=== PATIENT | male | born 2000 | race Caucasian/White ===

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

== ENCOUNTER 2021-05-04 15:09 | Inpatient (IN) ==
[2021-05-04 15:58] LABS: Basophils # (auto) 0.01 K/uL (0-0.2); Basophils % (auto) 0.1 %; Eosinophils # (auto) 0.14 K/uL (0-0.5); Eosinophils % (auto) 1.9 %; Hemoglobin 13.6 g/dL (14.0-18.0); Immature Granulocytes # (auto) 0.01 K/uL (0.00-0.02); Immature Granulocytes % (auto) 0.1 %; Lymphocytes # (auto) 2.09 K/uL (1.2-3.4); Lymphocytes % (auto) 28.9 %; Mean Corpuscular Hemoglobin 28.5 pg (25-34); Mean Corpuscular Hgb Conc 33.2 g/dL (32-36); Mean Corpuscular Volume 85.8 fL (80-100); Mean Platelet Volume 9.1 fL (7.4-10.4); Neutrophils # (auto) 4.19 K/uL (1.4-6.5); Platelet Count 313 K/uL (130-400); RDW Coefficient of Variation 14.4 % (11.5-14.5); RDW Standard Deviation 45.4 fL (36.4-46.3); Red Blood Count 4.78 M/uL (4.7-6.1); White Blood Count 7.24 K/uL (4.8-10.8)
--- NOTE | 2021-05-04 15:58 | Emergency Department Note ---
Impression & Plan Acute cerebrovascular accident (CVA), Right sided weakness, Anemia ED Provider Note NAME: FER EUCEDA AGE: 20 SEX: M : 2000 ARRIVES VIA: Walk-In INFORMANT: Patient ED PROVIDER(S): Shaq De La Torre DO CHIEF COMPLAINT: Possible stroke HPI: Patient is a 20-year-old male who presents the ER for right-sided weakness which started this past Saturday. He was seen evaluated in outside facility and discharged home. He notes he has been having trouble with fine motor movements and has been dropping his phone and having trouble writing. He is right-hand dominant. He admits to mild headache. No neck pain. No chest pain shortness of breath nausea vomiting or diarrhea. No other exacerbating or remitting factors. He had an MRI done as an outpatient which showed a possible stroke. ROS: See above HPI for pertinent positives & negatives. A total of 10 systems reviewed and were otherwise negative. PAST MEDICAL HISTORY:See Below PAST SURGICAL HISTORY:See Below FAMILY HISTORY:See Below SOCIAL HISTORY:See Below HOME MEDICATIONS:See Below ALLERGIES:See Below VITALS:See Below PHYSICAL EXAMINATION: GENERAL: Sitting up in bed, alert, well appearing, well nourished, no distress, non-toxic EYE EXAM: normal conjunctiva. PERRL and EOM's grossly intact. OROPHARYNX: no exudate, no erythema, lips, buccal mucosa, and tongue normal and mucous membranes are moist NECK: supple, no nuchal rigidity, no adenopathy, non-tender LUNGS: Clear to auscultation. Normal chest wall mechanics HEART: no murmurs, S1 normal and S2 normal ABDOMEN: abdomen soft, non-tender, normo-active bowel sounds, no masses, no rebound or guarding. BACK: Back is symmetrical on inspection and there is no deformity, no midline tenderness, no CVA tenderness. SKIN: no rashes and no bruising UPPER EXTREMITIES: upper extremities are grossly normal. LOWER EXTREMITIES: No pitting edema. NEURO EXAM: Normal sensorium, cranial nerves II-XII intact, normal speech, faintly weaker with grasp of the right upper extremity. 5 out of 5 bilaterally, no gross weakness of legs. No drift. Finger to nose intact. Gross sensation intact. Rapid alternating movements of upper extremities intact. MEDICAL DECISION MAKING: Patient is a 20-year-old male who presents ER for right-sided weakness. Patient had an MRI performed which showed a stroke. Dr. Ludwig called me and I discussed with the MRI techs and our charge nurse and obtained a bed for this patient. IV was established blood work was obtained. Labs show no significant leukocytosis or anemia. BMP with LFTs was unremarkable. Covid was negative. MR showed CVA. Discussed with the hospitalist and patient was admitted for acute stroke. He was out of the window for TPA as symptoms started on Saturday. Triage Nursing notes reviewed. Limited review of prior medical records performed Vital Signs: reviewed and remarkable for no significant abnormalities Differential diagnosis: Differential Diagnosis includes but is not limited to ischemic Stroke, hemorrhag ic stroke, bells palsy, mass, neoplasm, migraine headache, seizure, subarachnoid hemorrhage, TIA, and transient global amnesia. ER treatment provided: See below Diagnostics interpreted by me: ECG: Sinus rhythm rate 69 Normal axis No PVCs QTC 415 Cardiac Monitoring: An order was placed for continuous cardiac monitoring. The monitor shows a rate of 72 with sinus rhythm. Laboratory studies: As stated above and show below. Imaging studies: MRIs were reviewed and showed acute CVA Consultation(s): Discussed with [facility] hospitalist team for further evaluation Procedures: none Critical Care: None Past Med/Surg History Medical History (Updated 05/04/21 @ 21:34 by Shaq De La Torre DO) Migraine Surgical History (Updated 05/04/21 @ 19:18 by Aliza Angulo PA-C) History of hernia repair and repair of undescended testicle @ 13month old Family History (Updated 05/04/21 @ 19:19 by Aliza Angulo PA-C) Father Pancreatic cancer Diabetes Hypertension Denies family history of Clotting disorder Stroke Social History (Updated 05/04/21 @ 19:20 by Aliza Angulo PA-C) Smoking Status: Never smoker Do You Dip or Chew Tobacco: No; Hx Alcohol Use: No Hx Substance Use: No Preferred Language: Khmer Communication Ability: Effective Product Grader Required: No Beliefs That Will Affect Care: None marital status: Single Current Living Situation: Family Current Living Situation Comment: [employer] Student; 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 Other Information That Helps Us Care for You: No Feels Safe at Home: Yes Safety Concerns: Feels Safe At This Time Assistive Devices: None Allergies Allergies Allergy/AdvReac Type Severity Reaction Status Date / Time No Known Allergies Allergy Verified 05/04/21 15:46 Home Meds Home Medications Medication Instructions Recorded Confirmed No Known Home Medications 05/04/21 05/04/21 Results & Data (ED) Vital Signs Vital Signs - 24 hr 05/04/21 15:23 05/04/21 15:44 05/04/21 15:45 Temperature 36.8 C Temperature Source Oral Pulse Rate 60 75 62 Pulse Rate from SpO2 Sensor Pulse Rhythm Regular Pulse Strength Normal Respiratory Rate 18 18 17 Respiratory Effort / Characteristics Non-Labored Respiratory Depth Normal Respiratory Pattern Regular Blood Pressure 122/87 122/87 Blood Pressure Mean 98 98 Blood Pressure Position Lying Pulse Oximetry 98 99 100 Oxygen Delivery Method Room Air Room Air Room Air Sepsis Recent Fever Within 48 Hours No Sepsis New/Unexplained Change in Mental Status N/A Sepsis Action Taken by Nursing No Action Required 05/04/21 16:00 05/04/21 16:15 Temperature Temperature Source Pulse Rate 61 67 Pulse Rate from SpO2 Sensor 66 Pulse Rhythm Pulse Strength Respiratory Rate 15 18 Respiratory Effort / Characteristics Respiratory Depth Respiratory Pattern Blood Pressure 126/86 117/81 Blood Pressure Mean 99 93 Blood Pressure Position Pulse Oximetry 99 98 Oxygen Delivery Method Room Air Room Air Sepsis Recent Fever Within 48 Hours Sepsis New/Unexplained Change in Mental Status Sepsis Action Taken by Nursing Laboratory Data Result diagrams: 05/04/21 15:45 05/04/21 15:45 Lab Results 05/04/21 05/04/21 05/04/21 Range/Units 15:45 15:45 15:45 WBC 7.24 (4.8-10.8) K/uL RBC 4.78 (4.7-6.1) M/uL Hgb 13.6 L (14.0-18.0) g/dL Hct 41.0 L (42-52) % MCV 85.8 (80-100) fL MCH 28.5 (25-34) pg MCHC 33.2 (32-36) g/dL RDW Std Deviation 45.4 (36.4-46.3) fL RDW Coeff of Giuliana 14.4 (11.5-14.5) % Plt Count 313 (130-400) K/uL MPV 9.1 (7.4-10.4) fL Immature Gran % (Auto) 0.1 % Neut % (Auto) 58.0 % Lymph % (Auto) 28.9 % [place] % (Auto) 11.0 % Eos % (Auto) 1.9 % Baso % (Auto) 0.1 % Neut # (Auto) 4.19 (1.4-6.5) K/uL Lymph # (Auto) 2.09 (1.2-3.4) K/uL [place] # (Auto) 0.80 H (0.11-0.59) K/uL Eos # (Auto) 0.14 (0-0.5) K/uL Baso # (Auto) 0.01 (0-0.2) K/uL Immature Gran # (Auto) 0.01 (0.00-0.02) K/uL PT 10.4 (9.0-12.0) Seconds INR 1.0 (0.9-1.1) APTT 27.1 (21.0-31.0) Seconds PTT Ratio 1.0 Sodium 137 (136-145) mmol/L Potassium 4.1 (3.5-5.1) mmol/L Chloride 103 (98-107) mmol/L Carbon Dioxide 28 (21-32) mmol/L Anion Gap 6.0 (3-11) BUN 17 (7-18) mg/dl Creatinine 0.92 (0.6-1.4) mg/dl Est Cr Clr Drug Dosing 120.7 ml/min Est GFR ( Amer) 139.3 ml/min Est GFR (Non-Af Amer) 120.2 ml/min BUN/Creatinine Ratio 18.6 (10-20) Glucose 89 (70-99) mg/dl Calcium 9.3 (8.5-10.1) mg/dl Magnesium 2.0 (1.8-2.4) mg/dl Total Bilirubin 0.2 (0.2-1) mg/dl AST 27 (15-37) U/L ALT 40 (12-78) U/L Alkaline Phosphatase 92 (45-117) U/L Troponin I < 0.015 (0-0.045) ng/ml Total Protein 7.4 (6.4-8.2) gm/dl Albumin 3.2 L (3.4-5.0) gm/dl Globulin 4.2 H (2.5-4.0) gm/dl Albumin/Globulin Ratio 0.8 L (0.9-2) COVID-19 Eval Order SARS-CoV-2 (PCR) (Negative) 05/04/21 05/04/21 Range/Units 16:04 16:04 WBC (4.8-10.8) K/uL RBC (4.7-6.1) M/uL Hgb (14.0-18.0) g/dL Hct (42-52) % MCV (80-100) fL MCH (25-34) pg MCHC (32-36) g/dL RDW Std Deviation (36.4-46.3) fL RDW Coeff of Giuliana (11.5-14.5) % Plt Count (130-400) K/uL MPV (7.4-10.4) fL Immature Gran % (Auto) % Neut % (Auto) % Lymph % (Auto) % [place] % (Auto) % Eos % (Auto) % Baso % (Auto) % Neut # (Auto) (1.4-6.5) K/uL Lymph # (Auto) (1.2-3.4) K/uL [place] # (Auto) (0.11-0.59) K/uL Eos # (Auto) (0-0.5) K/uL Baso # (Auto) (0-0.2) K/uL Immature Gran # (Auto) (0.00-0.02) K/uL PT (9.0-12.0) Seconds INR (0.9-1.1) APTT (21.0-31.0) Seconds PTT Ratio Sodium (136-145) mmol/L Potassium (3.5-5.1) mmol/L Chloride (98-107) mmol/L Carbon Dioxide (21-32) mmol/L Anion Gap (3-11) BUN (7-18) mg/dl Creatinine (0.6-1.4) mg/dl Est Cr Clr Drug Dosing ml/min Est GFR ( Amer) ml/min Est GFR (Non-Af Amer) ml/min BUN/Creatinine Ratio (10-20) Glucose (70-99) mg/dl Calcium (8.5-10.1) mg/dl Magnesium (1.8-2.4) mg/dl Total Bilirubin (0.2-1) mg/dl AST (15-37) U/L ALT (12-78) U/L Alkaline Phosphatase (45-117) U/L Troponin I (0-0.045) ng/ml Total Protein (6.4-8.2) gm/dl Albumin (3.4-5.0) gm/dl Globulin (2.5-4.0) gm/dl Albumin/Globulin Ratio (0.9-2) COVID-19 Eval Order Covid19 at [facility] SARS-CoV-2 (PCR) NEGATIVE (Negative) Administered Medications Aspirin (Aspirin 81 Mg Ectab) 81 mg PO DAILY [facility] Stop: 06/03/21 17:14 Last Admin: 05/04/21 17:33 Dose: 81 mg Documented by: [id number] Clopidogrel Bisulfate (Clopidogrel Bisulfate 75 Mg Tab) 75 mg PO QAM [facility] Stop: 06/03/21 18:35 Last Admin: 05/04/21 19:00 Dose: 75 mg Documented by: [id number] Discontinued Medications Ioversol (Optiray 320 125ml) 110 ml IV ONCE ONE Stop: 05/04/21 18:38 Last Admin: 05/04/21 18:37 Dose: 110 ml Documented by: [id number] Imaging Data Radiologist's Impression: Chest X-Ray 05/04/21 15:23 XR chest 1V portable HISTORY: 20 years-old Male Stroke Like Symptoms acute strokelike symptoms COMPARISON: Chest radiographs 11/19/2005 TECHNIQUE: Portable AP view of the chest FINDINGS: Cardiomediastinal and hilar silhouettes are within normal limits. No pne umothorax, pleural effusion, airspace consolidation or overt pulmonary edema. Mild mid thoracic dextroscoliosis may be positional. No acute fracture. IMPRESSION: No acute process. ACT 112: Negative or not required by law. The above report was generated using voice recognition software. It may contain grammatical, syntax or spelling errors. Electronically signed by: Rogerio Louise M.D. 05/04/2021 4:07 PM Discharge Plan Visit Data Chief Complaint: Stroke/CVA Symptoms ED Provider: Shaq De La Torre Discharge Problem: Acute cerebrovascular accident (CVA), Right sided weakness, Anemia Patient Disposition: Admitted As Inpatient Discharge Instructions Interventions: ED Discharge Assessment Last Done: 05/04/21 20:30
--- NOTE | 2021-05-04 16:08 | XRay Report ---
XR chest 1V portable HISTORY: 20 years-old Male Stroke Like Symptoms acute strokelike symptoms COMPARISON: Chest radiographs 11/19/2005 TECHNIQUE: Portable AP view of the chest FINDINGS: Cardiomediastinal and hilar silhouettes are within normal limits. No pneumothorax, pleural effusion, airspace consolidation or overt pulmonary edema. Mild mid thoracic dextroscoliosis may be positional. No acute fracture. IMPRESSION: No acute process. ACT 112: Negative or not required by law. The above report was generated using voice recognition software. It may contain grammatical, syntax o r spelling errors. Electronically signed by: Rogerio Louise M.D. 05/04/2021 4:07 PM
[2021-05-04 16:09] LABS: Partial Thromboplastin Time 27.1 Seconds (21.0-31.0); Prothrombin Time 10.4 Seconds (9.0-12.0)
[2021-05-04 16:16] LABS: Alanine Aminotransferase 40 U/L (12-78); Albumin Level 3.2 gm/dl (3.4-5.0); Aspartate Aminotransferase 27 U/L (15-37); BUN Creatinine Ratio 18.6 (10-20); Blood Urea Nitrogen 17 mg/dl (7-18); Calcium 9.3 mg/dl (8.5-10.1); Carbon Dioxide 28 mmol/L (21-32); Chloride 103 mmol/L (98-107); Creatinine Clr Calc Pharmacy 120.7 ml/min; Est GFR (African American) 139.3 ml/min; Est GFR (Non-African American) 120.2 ml/min; Glucose 89 mg/dl (70-99); Potassium 4.1 mmol/L (3.5-5.1); Sodium 137 mmol/L (136-145)
[2021-05-04 16:21] LABS: Albumin Globulin Ratio 0.8 (0.9-2); Alkaline Phosphatase 92 U/L (45-117); Bilirubin,Total 0.2 mg/dl (0.2-1); Globulin 4.2 gm/dl (2.5-4.0); Total Protein 7.4 gm/dl (6.4-8.2); Troponin I < 0.015 ng/ml (0-0.045)
--- NOTE | 2021-05-04 16:40 | History & Physical Report ---
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 MRI:. 2.9 x 2.5 x 1.2 cm focus of signal abnormality within the posterior aspect of the left lentiform nucleus extending into the centrum semiovale. This is consistent with an acute infarct. No significant mass effect. Findings discussed with Dr. De La Torre at time of dictation. 2. Additional smaller foci of signal abnormality within the white matter of the superior left frontal lobe. This finding is age indeterminate although probably not acute. This may contain trace blood products given T1 hyperintensity. No mass effect. CTA head and neck unremarkable. No risk factors for CVA. Admit to PCU Discussed case with neurology Dr. Moore and Dr. Powers Start ASA 81mg daily and plavix 75mg daily obtain echocardiogram hypercoagulable work up passed dysphagia screen, regular diet PT/OT/ST monitor on telemetry fasting lipid panel and a1c in a.m. based on lipid panel consider statin Anemia hgb 13.6 anemia panel in a.m. hx of iron def, was screened for sickle cell in past and negative Dispo: PCU, d/c to home when stable PCP: Eliza FULL CODE Pt was seen and examined in collaboration with Dr. You, please see addendum History of Present Illness Chief Complaint: R sided weakness x 3 days. Primary Care Provider: Calin Kay MD This is a 20-year-old male who is otherwise healthy who presents to ED after having abnormal MRI concerning for acute CVA. 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. He noticed he was developing hives on 04/23/2021. Hives were present for approximately a week. Family thought maybe 2/2 to laundry detergents as they always used free and clear and he wasn't using that at college. On 04/29 he started taking Benadryl. 2 days after starting the Benadryl he developed numbness to right arm and right leg which then progressed to weakness. He also felt forgetful and having difficulty speaking. He called his mother and stated he was having trouble with class and doing his work because of his memory. He was seen and evaluated at [facility]; however, no imaging was done and he was told he had an allergy to Benadryl. He was seen in clinic today by Dr. Roberta Sampson who also discussed case with neurologist Dr. Powers. It was recommended he undergo a stat MRI of brain and cervical spine as well as an EMG. MRI brain was performed which revealed a 2.9 x 2.5 x 1 centimeter focus of signal abnormality within the posterior aspect of the left lentiform nuclear this extending into the centrum semiovale. This is consistent with an acute infarct. No significant mass-effect. Additional smaller foci of signal abnormality within the white matter of the superior left frontal lobe. This finding is indeterminate although probably not acute. He was referred to ED given these findings. He also had an MRI of the cervical spine which was unremarkable. Lyme and Anaplasma is still pending as an outpatient. Currently in ED with his mother at bedside he is feeling improved. He still have numbness to R side but feels weakness is improving. He occasionally has issues with memory. He is fully vaccinated for covid with moderna. He denies f/c/s, chest pain, sob, cough, uri sx, n/v/d, change in bowel or urinary habits. In ED he remained hemodynamically stable. Allergies Allergy/AdvReac Type Severity Reaction Status Date / Time No Known Allergies Allergy Verified 05/04/21 15:46 Home Medications Medication Instructions Recorded Confirmed Type No Known Home Medications 05/04/21 05/04/21 History Past Med/Surg History Medical History Migraine Surgical History History of hernia repair and repair of undescended testicle @ 13month old Family History Father Pancreatic cancer Diabetes Hypertension Denies family history of Clotting disorder Stroke Social History Smoking Status: Never smoker Hx Alcohol Use: No Hx Substance Use: No Preferred Language: Welsh Communication Ability: Effective 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 Beliefs That Will Affect Care: None marital status: Single Current Living Situation: Family Current Living Situation Comment: [employer] Student; Wrestler for [employer] current occupational status: student Feels Safe at Home: Yes Assistive Devices: None Review of Systems Review of Systems: All systems reviewed & are unremarkable except as noted in HPI & below Physical Exam Physical Exam: Constitutional: WD/WN, vitals as above, NAD, sitting up in bed, pleasant, conversing easily Head: Normocephalic, Atraumatic Eyes: PERRL, conjunctivae normal, anicteric sclerae ENMT: external ear and nose normal, oropharynx normal Neck: trachea midline, no thyromegaly normal visual inspection Respiratory: normal respiratory effort, lungs clear to auscultation, no wheeze, rales, rhonchi. 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 Skin: no rashes, warm and dry normal turgor Neurologic: PERRL, EOMI, accommodation nl, no face palsy, no dysarthria, 1 episode of word finding difficulty CN's II-XI intact bilaterally and moves all extremities Psychiatric: A+Ox3, euthymic affect Lymphatic: no cervical or axillary lymphadenopathy : deferred Results & Data Results & Data ([facility]) Vital Signs (Past 12 Hours) Vital Signs Temp Pulse Resp BP Pulse Ox 05/04/21 15:23 36.8 C 60 18 122/87 98 Diagnostic Findings Chest X-Ray 05/04/21 15:23 XR chest 1V portable HISTORY: 20 years-old Male Stroke Like Symptoms acute strokelike symptoms COMPARISON: Chest radiographs 11/19/2005 TECHNIQUE: Portable AP view of the chest FINDINGS: Cardiomediastinal and hilar silhouettes are within normal limits. No pneumothorax, pleural effusion, airspace consolidation or overt pulmonary edema. Mild mid thoracic dextroscoliosis may be positional. No acute fracture. IMPRESSION: No acute process. ACT 112: Negative or not required by law. The above report was generated using voice recognition software. It may contain grammatical, syntax or spelling errors. Electronically signed by: Rogerio Louise M.D. 05/04/2021 4:07 PM MRI OF THE BRAIN WITHOUT AND WITH IV CONTRAST CLINICAL HISTORY: NUMBNESS AND TINGLING OF RIGHT ARM AND LEG COMPARISON STUDY: No previous studies for comparison. TECHNIQUE: Utilizing a 1.5 Zeinab magnet and dedicated coil, multiplanar, multiecho imaging of the brain was performed pre and postcontrast administration. IV administration of 6.5 mL of Gadavist contrast was uneventful. FINDINGS: There is a 2.9 x 2.5 x 1.2 cm T2 hyperintense focus with restricted diffusion within the posterior aspect of the left lentiform nucleus extending into the left centrum semiovale. This is hypointense on the ADC map. There is no significant mass effect. Note is made of an additional subtle foci of signal abnormality measuring up to 4 mm within the white matter of the superior left frontal lobe shown on axial image 16 of 22. This demonstrates slight enhancement T1 hyperintensity. This smaller focus is hyperintense on the diffusion-weighted sequence but not hypointense on the ADC map. Ventricular system is normal. Basal cisterns are patent. There are no extra axial collections. Flow-voids for the major intracranial vessels are present. No intracranial mass or pathologic enhancement is present. Calvarial signal is normal. Orbits are unremarkable. There is no evidence for sinusitis. There is no mastoid fluid. IMPRESSION: 1. 2.9 x 2.5 x 1.2 cm focus of signal abnormality within the posterior aspect of the left lentiform nucleus extending into the centrum semiovale. This is consistent with an acute infarct. No significant mass effect. Findings discussed with Dr. De La Torre at time of dictation. 2. Additional smaller foci of signal abnormality within the white matter of the superior left frontal lobe. This finding is age indeterminate although probably not acute. This may contain trace blood products given T1 hyperintensity. No mass effect. MRI OF THE CERVICAL SPINE WITH AND WITHOUT CONTRAST CLINICAL HISTORY: NUMBNESS AND TINGLING OF RIGHT ARM AND LEG COMPARISON: None. TECHNIQUE: Utilizing a 1.5 Zeinab magnet and dedicated coil, multiplanar, multiecho imaging of the cervical spine was performed before and after intravenous administration of 6.5 of Gadavist. FINDINGS: Alignment of the cervical spine is anatomic. Vertebral body heights are maintained. There is no marrow edema or marrow replacement. Cervical cord signal and caliber are normal. There is no intracanalicular mass, fluid collection or abnormal enhancement. Disc spaces are preserved. There is slight desiccation of the C4-C5 and C5-C6 intervertebral discs. Paravertebral soft tissues are unremarkable. C2-C3: The central canal and neural foramen are patent. C3-C4: The central canal and neural foramen are patent. C4-C5: The central canal and neural foramen are patent. C5-C6: The central canal and neural foramen are patent. C6-C7: The central canal and neural foramen are patent. C7-T1: The central canal and neural foramen are patent. IMPRESSION: Unremarkable MRI of the cervical spine. ACT 112: Negative or not required by law. CTA Head/Neck: FINDINGS: Three-vessel morphology of the thoracic aortic arch. Patency of the innominate and imaged subclavian arteries. The common and internal carotid arteries are widely patent. The middle and anterior cerebral arteries are patent. Developmentally diminutive right A1 segment. Codominant and patent vertebral arteries. The basilar and posterior cerebral arteries are also patent. origin of the right posterior cerebral artery. Cerebral venous sinuses are patent. There is no abnormal intracranial enhancement. Ill-defined hypodensity the left lentiform nucleus and adjacent merrill radiata. Residual thymic tissue anterior mediastinum. No pneumothorax. Centimeter hypodense focus of the left thyroid. No acute fracture. IMPRESSION: 1. Unremarkable CTA of the head and neck. 2. The acute infarct of the left lentiform nucleus and adjacent white matter is better characterized on the brain MRI study of same day. Medications Administered Medication List Aspirin (Aspirin 81 Mg Ectab) 81 mg PO DAILY [facility] Stop: 06/03/21 17:14 Last Admin: 05/04/21 17:33 Dose: 81 mg Documented by: Clopidogrel Bisulfate (Clopidogrel Bisulfate 75 Mg Tab) 75 mg PO QAM JASON Stop: 06/03/21 18:35 Last Admin: 05/04/21 19:00 Dose: 75 mg Documented by: Discontinued Medications Ioversol (Optiray 320 125ml) 110 ml IV ONCE ONE Stop: 05/04/21 18:38 Last Admin: 05/04/21 18:37 Dose: 110 ml Documented by: ECG Rate (beats per minute): 69 Rhythm: normal sinus COVID-19 Results Results COVID-19 Adm Lab Results: RBC 4.76 M/uL (4.7-6.1) 05/05/21 WBC 6.40 K/uL (4.8-10.8) 05/05/21 Hgb 13.6 g/dL (14.0-18.0) L 05/05/21 Hct 40.7 % (42-52) L 05/05/21 Plt Count 313 K/uL (130-400) 05/05/21 Neutrophils (%) (Auto) 46.9 % 05/05/21 Lymphocytes (%) (Auto) 35.0 % 05/05/21 Monocytes # (Auto) 0.96 K/uL (0.11-0.59) H 05/05/21 Eosinophils # (Auto) 0.17 K/uL (0-0.5) 05/05/21 Immature Granulocyte % (Auto) 0.2 % 05/05/21 Neutrophils # (Auto) 3.01 K/uL (1.4-6.5) 05/05/21 Lymphocytes # (Auto) 2.24 K/uL (1.2-3.4) 05/05/21 Monocytes # (Auto) 0.96 K/uL (0.11-0.59) H 05/05/21 Eosinophils # (Auto) 0.17 K/uL (0-0.5) 05/05/21 Basophils # (Auto) 0.01 K/uL (0-0.2) 05/05/21 Immature Granulocyte # (Auto) 0.01 K/uL (0.00-0.02) 05/05/21 Na 139 mmol/L (136-145) 05/05/21 K 3.8 mmol/L (3.5-5.1) 05/05/21 Cl 105 mmol/L (98-107) 05/05/21 CO2 29 mmol/L (21-32) 05/05/21 Anion Gap 5.0 (3-11) 05/05/21 BUN 17 mg/dl (7-18) 05/05/21 Creatinine 0.88 mg/dl (0.6-1.4) 05/05/21 BUN/Creatinine Ratio 18.9 (10-20) 05/05/21 Glucose Level 115 mg/dl (70-99) H 05/05/21 Ca 8.6 mg/dl (8.5-10.1) 05/05/21 Total Bilirubin 0.2 mg/dl (0.2-1) 05/04/21 AST/SGOT 27 U/L (15-37) 05/04/21 ALT/SGPT 40 U/L (12-78) 05/04/21 Alkaline Phosphatase 92 U/L (45-117) 05/04/21 Total Protein 7.4 gm/dl (6.4-8.2) 05/04/21 Albumin 3.2 gm/dl (3.4-5.0) L 05/04/21 Globulin 4.2 gm/dl (2.5-4.0) H 05/04/21 Albumin/Globulin Ratio 0.8 (0.9-2) L 05/04/21 Troponin I < 0.015 ng/ml (0-0.045) 05/04/21 CRP < 0.29 mg/dl (0-0.29) 05/05/21 Ferritin 10.1 ng/ml (8-388) 05/05/21 PTT 27.1 Seconds (21.0-31.0) 05/04/21 INR 1.0 (0.9-1.1) 05/04/21 Triglycerides Level 81 mg/dl (0-150) 05/05/21 COVID-19 PCR NEGATIVE (Negative) 05/04/21 Chest X-Ray 05/04/21 Code Status & VTE Plan Code Status Full Code VTE Prophylaxis Plan VTE Prophylaxis will be ordered: No Supervising Physician Co-Signing Physician Notes Patient was seen and examined. Agree with Aliza MUNOZ exam, assessment and plan. 20-year-old male with no significant PMH presents to ED after having abnormal MRI concerning for acute CVA. 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 He had an MRI done after he developed numbness to right arm and right leg which then progressed to weakness. He also had difficulty speaking. He had an MRI of brain and cervical spine as well as an EMG. MRI brain was performed which revealed a 2.9 x 2.5 x 1 centimeter focus of signal abnormality within the posterior aspect of the left lentiform nuclear this extending into the centrum semiovale. This is consistent with an acute infarct. No significant mass-effect. He denies any chest pain, sob, cough.Starting on aspirin and plavix. Will get an echo. Neuro consult. Will continue monitor closely in tele. MD Avelino
[2021-05-04] MEDS: ASPIRIN 81 MG ECTAB PO SCH (17:33)
[2021-05-04] MEDS ORDERED: OPTIRAY 320 125ml IV ONE (18:37)
[2021-05-04] MEDS: CLOPIDOGREL BISULFATE 75 MG TAB PO SCH (19:00)
--- NOTE | 2021-05-04 19:06 | CT Scan Report ---
CT angio neck with con, CT angio head w con CLINICAL HISTORY: 20 years-old Male with cva. Acute strokelike symptoms COMPARISON STUDY: Brain MRI of same day at 2:19 PM TECHNIQUE: Following the IV administration of 110 mL of Optiray, CT angiogram of the head and neck wa s performed from the aortic arch to the skull apex. Images are reviewed in the axial, sagittal, and c oronal planes. 3-D MIPS images are created and assessed. IV contrast was administered without complic ation. All measurements were calculated based on NASCET criteria. A dose lowering technique was util ized adhering to the principles of ALARA. CT DOSE: 541.47 mGy.cm FINDINGS: Three-vessel morphology of the thoracic aortic arch. Patency of the innominate and imaged subclavian arteries. The common and internal carotid arteries are widely patent. The middle and anterior cerebra l arteries are patent. Developmentally diminutive right A1 segment. Codominant and patent vertebral a rteries. The basilar and posterior cerebral arteries are also patent. origin of the right poste rior cerebral artery. Cerebral venous sinuses are patent. There is no abnormal intracranial enhanceme nt. Ill-defined hypodensity the left lentiform nucleus and adjacent merrill radiata. Residual thymic tissue anterior mediastinum. No pneumothorax. Centimeter hypodense focus of the left thyroid. No acute fracture. IMPRESSION: 1. Unremarkable CTA of the head and neck. 2. The acute infarct of the left lentiform nucleus and adjacent white matter is better characterized on the brain MRI study of same day. ACT 112: Negative or not required by law. The above report was generated using voice recognition software. It may contain grammatical, syntax o r spelling errors. Electronically signed by: Rogerio Louise M.D. 05/04/2021 7:05 PM
[2021-05-04] MEDS ORDERED: ACETAMINOPHEN 325 MG TAB PO PRN (21:10)
[2021-05-04] MEDS ORDERED: ONDANSETRON INJ 2 MG/ML 2 ML VIAL IV PRN (21:10)
[2021-05-04] MEDS ORDERED: PHARMACIST DISCHARGE MED REC CONSULT PRN (21:10)
[2021-05-05 04:37] LABS: Basophils # (auto) 0.01 K/uL (0-0.2); Basophils % (auto) 0.2 %; Eosinophils # (auto) 0.17 K/uL (0-0.5); Eosinophils % (auto) 2.7 %; Hematocrit (blood only) 40.7 % (42-52); Hemoglobin 13.6 g/dL (14.0-18.0); Immature Granulocytes # (auto) 0.01 K/uL (0.00-0.02); Immature Granulocytes % (auto) 0.2 %; Lymphocytes # (auto) 2.24 K/uL (1.2-3.4); Mean Corpuscular Hemoglobin 28.6 pg (25-34); Mean Corpuscular Hgb Conc 33.4 g/dL (32-36); Mean Corpuscular Volume 85.5 fL (80-100); Mean Platelet Volume 9.1 fL (7.4-10.4); Monocytes # (auto) 0.96 K/uL (0.11-0.59); Neutrophils # (auto) 3.01 K/uL (1.4-6.5); Neutrophils % (auto) 46.9 %; Platelet Count 313 K/uL (130-400); RDW Coefficient of Variation 14.4 % (11.5-14.5); RDW Standard Deviation 45.2 fL (36.4-46.3); Red Blood Count 4.76 M/uL (4.7-6.1)
[2021-05-05 04:56] LABS: BUN Creatinine Ratio 18.9 (10-20); Calcium 8.6 mg/dl (8.5-10.1); Creatinine Clr Calc Pharmacy 126.2 ml/min; Est GFR (African American) 144.3 ml/min; Est GFR (Non-African American) 124.5 ml/min; Potassium 3.8 mmol/L (3.5-5.1)
[2021-05-05 05:01] LABS: Ferritin 10.1 ng/ml (8-388)
[2021-05-05 05:42] LABS: Folate (Folic Acid) 11.2 ng/ml (>5.38)
[2021-05-05 07:25] LABS: Estimated Average Glucose 114 mg/dl; Hemoglobin A1C 5.6 % (4.5-5.6)
[2021-05-05] MEDS: CLOPIDOGREL BISULFATE 75 MG TAB PO SCH (10:10)
[2021-05-05] MEDS: ASPIRIN 81 MG ECTAB PO SCH (10:10)
--- NOTE | 2021-05-05 12:12 | Cardiology Consultation ---
Date of Consultation May 05, 2021 Assessment & Plan (1) Acute cerebrovascular accident (CVA): (2) Mitral valve vegetation: 20-year-old patient mated with acute cerebrovascular accident confirmed by MRI. 2D transthoracic echocardiogram revealing mitral valve vegetation. Differential diagnosis includes thrombus and or tumor (i.e. fibroblastoma). Recommend blood cultures x2 now. Infectious disease consult with broad-spectrum intravenous antibiotics. Hypercoagulable work-up in process. Assess C-reactive protein and ESR. Consider autoimmune/rheumatologic work-up pending clinical course. Await recommendations from neurology. Ultimately recommend transesophageal echocardiogram for further assessment of mitral valve vegetation, however, patient has eaten today. With evidence of mitral valve vegetation and presumed embolic phenomenon, consider transfer to tertiary care center with CT surgery availability. History of Present Illness Reason for Consultation: CVA Requesting Physician: Dr. You Attending Physician: Adiel You MD History of Present Illness 20-year-old patient presented to the emergency department with right-sided weakness, and word finding issues. Patient describes urticaria occurring last Saturday. On Saturday he awoke noting weakness of his right arm and right leg. He also fell when he attempted to ambulate. Symptoms did not improve throughout the week. He came to the ER for further evaluation and treatment. Currently he notes mild weakness involving his right upper and lower extremity. 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 Noted difficulty with math throughout the week which is unusual for him. Also reports word finding issues. No visual changes or slurred speech. Denies dysphagia or facial asymmetry. No personal history of rheumatic fever, diabetes, congenital heart disease, hypercoagulable state, or prior thrombosis. He is a political organizer, wrestler. No recent dental work, infection, or febrile illness. Denies any recent skin rash or staph infection. Allergies Allergy/AdvReac Type Severity Reaction Status Date / Time No Known Allergies Allergy Verified 05/04/21 15:46 Home Medications Medication Instructions Recorded Confirmed Type No Known Home Medications 05/04/21 05/04/21 History Patient History Medical History Migraine Surgical History History of hernia repair and repair of undescended testicle @ 13month old Family History Father Pancreatic cancer Diabetes Hypertension Denies family history of Clotting disorder Stroke Social History Smoking Status: Never smoker Do You Dip or Chew Tobacco: No; Hx Alcohol Use: No Hx Substance Use: No Preferred Language: Arabic Communication Ability: Effective 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 Beliefs That Will Affect Care: None marital status: Single Current Living Situation: Family Current Living Situation Comment: [employer] Student; 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 Other Information That Helps Us Care for You: No Feels Safe at Home: Yes Safety Concerns: Feels Safe At This Time Assistive Devices: None Review of Systems Review of Systems: All systems reviewed & are unremarkable except as noted in Subjective Physical Exam Constitutional: WD/WN, vitals as above well developed and well nourished; no acute distress and not ill appearing Respiratory: normal respiratory effort, lungs clear to auscultation Cardiovascular: RRR, no murmur, no edema Gastrointestinal (Abdomen): Inspection/Auscultation: abdomen normal to inspection and normal bowel sounds; abdomen not distended Percussion/Palpation: abdomen soft; abdomen nontender, no guarding and abdomen not rigid Neurologic: moves all extremities and + focal motor deficit (Right upper extremity and right lower extremity weakness) Word finding issues. Psychiatric: A+Ox3, euthymic affect Results & Data ([place]) Vital Signs (Past 12 Hours) Vital Signs Temp Pulse Pulse Resp BP BP Pulse Ox 05/05/21 08:00 36.5 C 57 L 18 127/76 98 05/05/21 04:00 51 L 15 101/67 96 05/05/21 02:00 51 L 16 95 05/05/21 00:30 56 L 17 99/66 L 96 Diagnostic Findings Preliminary review of resting 2D transthoracic echocardiogram demonstrates a sma ll mobile echodensity adherent to the atrial surface of the anterior mitral valve leaflet. Preserved LV systolic function. No evidence of intracardiac shunt.
[2021-05-05] MEDS ORDERED: VANCOMYCIN CONSULT ACTIVE PRN (13:00)
[2021-05-05] MEDS ORDERED: cefTRIAXone SODIUM 2,000 MG in DEXTROSE 5% 50 ML IV SCH (14:00)
[2021-05-05] MEDS ORDERED: VANCOMYCIN HCL 1,500 MG in SODIUM CHLORIDE 0.9% 500 ML IV ONE (14:00)
--- NOTE | 2021-05-05 14:31 | Pharmacy Report ---
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 Blood cultures pending. Will dose more aggressively to start with plans to monitor closely. Day # 1 of antimicrobial therapy. Plan Vancomycin * AUC/THOMAS is the preferred PK/PD target for vancomycin * AUC guided dosing is effective and associated with decreased risk of nephrotoxicity compared to traditional trough targets * Predicted steady state trough level of 20 mcg/mL is predicted to achieve a AUC/THOMAS of close to 600 mg/L.hr and may be associated with a 18 % risk of nephrotoxicity. * Loading dose of 1500mg administered @ 1400 * Initiate dose of 1000 mg IV every 8 hours this evening * Trough or random level ordered for: 05/06/21 @ 1330 Pharmacy will continue to follow and will adjust dose/frequency as necessary. Thank you.
--- NOTE | 2021-05-05 15:17 | Neurology Consultation ---
Date of Consultation May 05, 2021 Assessment & Plan (1) Acute cerebrovascular accident (CVA): 1. MRI- acute stroke 2. TTE- echodensity mitral valve 3. hypercoag labs pending 4. tox screen pending 5. cardiology recommend KATARINA and transfer to [facility] 6. continue plavix 75 mg and aspirin 81 mg daily - for now 7. PT/OT speech for further recommendations 8. transfer to [place] in process (2) Mitral valve vegetation: 1. cardiology on board Supervising Physician Co-Signing Physician Notes I have seen and discussed above patient with Dr Edilberto Powers, neurology I have examined and interviewed this young man and agree that this was an acute embolic cva suffered this past saturday with history suggesting improving motor function and hopefully some return of mathematical skills and language issues in the upcoming weeks. imaging is consistent wth an acute deep left brain event and ecno shows possible mass on mitral valve Now on asa and plavix. Hypercoagulation panel drawn along with cannective tissue/vasculitis screen and transfer to [facility] for cardiovascular surgical assessment is underway Empiric antibiotics have been started and cultures are done as sbe remains in te differential despite his recent excellent health. Neurologically he has some issues with workd finding at times and a minimal right hemiparesis only and prognosis for recovery should be good but he will need rehab assessment speech and cognitive therapy after acute diagnostic and therapeutic interventions are complete Edilberto Powers MD we can see him in return in about six to eight weeks depencing upon outcome of his ealuation at [facility] History of Present Illness Reason for Consultation: acute CVA Requesting Physician: Adiel You MD Attending Physician: Adiel You MD History of Present Illness Ivan is a 20 year old male who presents to [facility] ED 05/04/2021, after having abnormal MRI concerning for acute CVA. 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 He noticed he was developing hives on 04/23/2021. Hives were present for approximately a week. Family thought maybe 2/2 to laundry detergents as they always used free and clear and he wasn't using that at college. On 04/29 he started taking Benadryl and 2 days after starting the Benadryl he developed numbness to right arm and right leg which then progressed to weakness. He was also having issues with getting out his words and his thought process. He was seen and evaluated at [facility]; however, no imaging was done and he was told he had an allergy to Benadryl. He was in outpatient clinic Roberta Sampson who also discussed case with neurologist Dr. Powers. It was recommended he undergo a stat MRI of brain and cervical spine. MRI brain was performed which revealed a 2.9 x 2.5 x 1 centimeter focus of signal abnormality within the posterior aspect of the left lentiform nuclear this extending into the centrum semiovale and left frontal lobe consistent with an acute infarct. He also had an MRI of the cervical spine which was unremarkable. Lyme and Anaplasma is still pending as an outpatient. He states he is still having issues with walking and on his right leg and difficulty with getting his thought together getting his words out. denies CP, SOB, abdominal pain, headache, vision changes. Allergies Allergy/AdvReac Type Severity Reaction Status Date / Time No Known Allergies Allergy Verified 05/04/21 15:46 Home Medications Medication Instructions Recorded Confirmed Type No Known Home Medications 05/04/21 05/04/21 History Patient History Medical History Migraine Surgical History History of hernia repair and repair of undescended testicle @ 13month old Family History Father Pancreatic cancer Diabetes Hypertension Denies family history of Clotting disorder Stroke Social History Smoking Status: Never smoker Do You Dip or Chew Tobacco: No; Hx Alcohol Use: No Hx Substance Use: No Preferred Language: [place] Communication Ability: Effective [place] Machine Operator Required: No Beliefs That Will Affect Care: None marital status: Single Current Living Situation: Family Current Living Situation Comment: [employer] Student; Wrestler for [employer] current occupational status: student Other Information That Helps Us Care for You: No Feels Safe at Home: Yes Safety Concerns: Feels Safe At This Time Assistive Devices: None Review of Systems Review of Systems: All systems reviewed & are unremarkable except as noted in HPI & below Physical Exam Physical Exam: Physical Exam: Constitutional: appearance nourished, healthy and normal Ears, Nose, Mouth and Throat: mucous membranes moist, no injection and skin normal, eyes normal Cardiovascular: normal S-1 and S-2 and regular rate and rhythm Respiratory: clear to auscultation (CTA) and no rales Musculoskeletal: no peripheral edema and good distal pulses Skin: no stigmata of neurocutaneous disease noted and normal and intact Eyes: extraocular muscles intact (EOMI) and pupils equal, round and reactive to light (PERRL) NEUROLOGIC EXAMINATION: Mental status: Alert and interactive Oriented to full date and location Oriented to person Speech dysphasia hesitant with speech Cranial Nerves smile eye brow raise symmetric Reflexes: Deep tendon reflexes were symmetrical and graded 2/5. Sensory: light cool vibration Coordination: finger to nose Gait/Stance: Posture normal. Motor: Negative for pronator drift of out stretched arms with eyes closed. Strength: hand senior product designer biceps triceps deltoids left 5/5 right 4+/5, hip flex plantar flex ext 5/5 Results & Data ([facility]) Vital Signs (Past 12 Hours) Vital Signs Temp Pulse Pulse Resp BP BP Pulse Ox 05/05/21 13:23 36.5 C 65 18 117/82 97 05/05/21 08:00 36.5 C 59 L 57 L 18 127/76 98 05/05/21 04:00 51 L 15 101/67 96 Laboratory Results Abnormal lab results 05/04/21 05/04/21 05/05/21 Range/Units 15:45 15:45 04:16 Hgb 13.6 L 13.6 L (14.0-18.0) g/dL Hct 41.0 L 40.7 L (42-52) % [place] # (Auto) 0.80 H 0.96 H (0.11-0.59) K/uL Glucose (70-99) mg/dl Albumin 3.2 L (3.4-5.0) gm/dl Globulin 4.2 H (2.5-4.0) gm/dl Albumin/Globulin Ratio 0.8 L (0.9-2) Cholesterol (0-200) mg/dl 05/05/21 Range/Units 04:16 Hgb (14.0-18.0) g/dL Hct (42-52) % [place] # (Auto) (0.11-0.59) K/uL Glucose 115 H (70-99) mg/dl Albumin (3.4-5.0) gm/dl Globulin (2.5-4.0) gm/dl Albumin/Globulin Ratio (0.9-2) Cholesterol 218 H (0-200) mg/dl Diagnostic Findings MRI brain-. 2.9 x 2.5 x 1.2 cm focus of signal abnormality within the posterior aspect of the left lentiform nucleus extending into the centrum semiovale. This is consistent with an acute infarct. No significant mass effect. Additional smaller foci of signal abnormality within the white matter of the superior left frontal lobe. This finding is age indeterminate although probably not acute. This may contain trace blood products given T1 hyperintensity. No mass effect. CTA head/neck-Unremarkable CTA of the head and neck. The acute infarct of the left lentiform nucleus and adjacent white matter is better characterized on the brain MRI study of same day. TTE- 60-65% EF small fibillary mobile echodensity mitral valve leaflet
[2021-05-05 16:03] LABS: Amphetamines+Metham, Urine Neg (Neg); Barbiturates, Urine Neg (Neg); Benzodiazepine, Urine Neg (Neg); Cocaine, Urine Neg (Neg); MDMA (Ecstacy), Urine Neg (Neg); Methadone, Urine Neg (Neg); Opiate, Urine Neg (Neg); Phencyclidine, Urine Neg (Neg)
--- NOTE | 2021-05-05 17:33 | Electrocardiogram Report ---
Test Reason : Blood Pressure : / mmHG Vent. Rate : 069 BPM Atrial Rate : 069 BPM P-R Int : 150 ms QRS Dur : 084 ms QT Int : 388 ms P-R-T Axes : 007 057 035 degrees QTc Int : 415 ms Normal sinus rhythm Normal ECG No previous ECGs available Confirmed by Jimenez Doran ([id number]) on 05/05/2021 5:33:17 PM Referred By: Confirmed By:Juancho Doran
[2021-05-05] MEDS ORDERED: STROKE PATIENT DISCHARGE STA (17:51)
--- NOTE | 2021-05-05 17:55 | Discharge Summary ---
Date of Service May 05, 2021 Admission HPI Per Admitting Provider This is a 20-year-old male who is otherwise healthy who presents to ED after having abnormal MRI concerning for acute CVA. 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 He noticed he was developing hives on 04/23/2021. Hives were present for approximately a week. Family thought maybe / to laundry detergents as they always used free and clear and he wasn't using that at college. On 04/29 he started taking Benadryl. 2 days after starting the Benadryl he developed numbness to right arm and right leg which then progressed to weakness. He also felt forgetful and having difficulty speaking. He called his mother and stated he was having trouble with class and doing his work because of his memory. He was seen and evaluated at [facility]; however, no imaging was done and he was told he had an allergy to Benadryl. He was seen in clinic today by Dr. Roberta Sampson who also discussed case with neurologist Dr. Powers. It was recommended he undergo a stat MRI of brain and cervical spine as well as an EMG. MRI brain was performed which revealed a 2.9 x 2.5 x 1 centimeter focus of signal abnormality within the posterior aspect of the left lentiform nuclear this extending into the centrum semiovale. This is consistent with an acute infarct. No significant mass-effect. Additional smaller foci of signal abnormality within the white matter of the superior left frontal lobe. This finding is indeterminate although probably not acute. He was referred to ED given these findings. He also had an MRI of the cervical spine which was unremarkable. Lyme and Anaplasma is still pending as an outpatient. Currently in ED with his mother at bedside he is feeling improved. He still have numbness to R side but feels weakness is improving. He occasionally has issues with memory. He is fully vaccinated for covid with moderna. He denies f/c/s, chest pain, sob, cough, uri sx, n/v/d, change in bowel or urinary habits. In ED he remained hemodynamically stable. Admission Exam Per Admitting Provider Constitutional: WD/WN, vitals as above, NAD, sitting up in bed, pleasant, conversing easily Head: Normocephalic, Atraumatic Eyes: PERRL, conjunctivae normal, anicteric sclerae ENMT: external ear and nose normal, oropharynx normal Neck: trachea midline, no thyromegaly normal visual inspection Respiratory: normal respiratory effort, lungs clear to auscultation, no wheeze, rales, rhonchi. Normal insp/exp effort, no accessory muscle use Cardiovascular: RRR, no murmur, no edema Vessels: no JVD or carotid bruit Chest: normal inspection of chest Abdomen: normal bowel sounds, soft, nontender, no hepatosplenomegaly Musculoskeletal: no cyanosis or clubbing, LUE/LLE strength 5/5; RUE/RLE 4/5, diminished fusing machine feeder strength on right Skin: no rashes, warm and dry normal turgor Neurologic: PERRL, EOMI, accommodation nl, no face palsy, no dysarthria, 1 episode of word finding difficulty CN's II-XI intact bilaterally and moves all extremities Psychiatric: A+Ox3, euthymic affect Lymphatic: no cervical or axillary lymphadenopathy : deferred Principal Diagnosis (1) Acute cerebrovascular accident (CVA): (2) Mitral valve vegetation: Discharge Exam Constitutional: WD/WN, vitals as above, NAD, sitting up in bed, pleasant, conversing easily Head: Normocephalic, Atraumatic Eyes: PERRL, conjunctivae normal, anicteric sclerae ENMT: external ear and nose normal, oropharynx normal Neck: trachea midline, no thyromegaly normal visual inspection Respiratory: normal respiratory effort, lungs clear to auscultation, no wheeze, rales, rhonchi. Normal insp/exp effort, no accessory muscle use Cardiovascular: RRR, no murmur, no edema Vessels: no JVD or carotid bruit Chest: normal inspection of chest Abdomen: normal bowel sounds, soft, nontender, no hepatosplenomegaly Musculoskeletal: no cyanosis or clubbing, LUE/LLE strength 5/5; RUE/RLE 4/5, diminished fusing machine feeder strength on right Skin: no rashes, warm and dry normal turgor Neurologic: PERRL, EOMI, accommodation nl, no face palsy, no dysarthria, 1 episode of word finding difficulty CN's II-XI intact bilaterally and moves all extremities Psychiatric: A+Ox3, euthymic affect Lymphatic: no cervical or axillary lymphadenopathy : deferred Discharge Data Allergies Allergy/AdvReac Type Severity Reaction Status Date / Time No Known Allergies Allergy Verified 05/04/21 15:46 Consultations 05/04/21 15:59 ED Decision to Admit Stat 05/04/21 17:09 Consult Neurology Routine 05/05/21 09:03 Consult Cardiology Routine 05/05/21 13:00 Consult Infectious Diseases Routine 05/05/21 16:26 Burn CD for patient Stat Ordered Studies 05/04/21 17:09 CT angio head w con Stat CT angio neck with con Stat CT angio neck with con, CT angio head w con CLINICAL HISTORY: 20 years-old Male with cva. Acute strokelike symptoms COMPARISON STUDY: Brain MRI of same day at 2:19 PM TECHNIQUE: Following the IV administration of 110 mL of Optiray, CT angiogram of the head and neck was performed from the aortic arch to the skull apex. Images are reviewed in the axial, sagittal, and coronal planes. 3-D MIPS images are created and assessed. IV contrast was administered without complication. All measurements were calculated based on NASCET criteria. A dose lowering technique was utilized adhering to the principles of ALARA. CT DOSE: 541.47 mGy.cm FINDINGS: Three-vessel morphology of the thoracic aortic arch. Patency of the innominate and imaged subclavian arteries. The common and internal carotid arteries are widely patent. The middle and anterior cerebral arteries are patent. Developmentally diminutive right A1 segment. Codominant and patent vertebral arteries. The basilar and posterior cerebral arteries are also patent. origin of the right posterior cerebral artery. Cerebral venous sinuses are patent. There is no abnormal intracranial enhancement. Ill-defined hypodensity the left lentiform nucleus and adjacent merrill radiata. Residual thymic tissue anterior mediastinum. No pneumothorax. Centimeter h ypodense focus of the left thyroid. No acute fracture. IMPRESSION: 1. Unremarkable CTA of the head and neck. 2. The acute infarct of the left lentiform nucleus and adjacent white matter is better characterized on the brain MRI study of same day. ACT 112: Negative or not required by law. The above report was generated using voice recognition software. It may contain grammatical, syntax or spelling errors. Electronically signed by: Rogerio Louise M.D. 05/04/2021 7:05 PM Dictated: 05/04/211858Transcribed: 05/04/211858 CT angio neck with con, CT angio head w con CLINICAL HISTORY: 20 years-old Male with cva. Acute strokelike symptoms COMPARISON STUDY: Brain MRI of same day at 2:19 PM TECHNIQUE: Following the IV administration of 110 mL of Optiray, CT angiogram of the head and neck was performed from the aortic arch to the skull apex. Images are reviewed in the axial, sagittal, and coronal planes. 3-D MIPS images are created and assessed. IV contrast was administered without complication. All measurements were calculated based on NASCET criteria. A dose lowering technique was utilized adhering to the principles of ALARA. CT DOSE: 541.47 mGy.cm FINDINGS: Three-vessel morphology of the thoracic aortic arch. Patency of the innominate and imaged subclavian arteries. The common and internal carotid arteries are widely patent. The middle and anterior cerebral arteries are patent. Developmentally diminutive right A1 segment. Codominant and patent vertebral arteries. The basilar and posterior cerebral arteries are also patent. origin of the right posterior cerebral artery. Cerebral venous sinuses are patent. There is no abnormal intracranial enhancement. Ill-defined hypodensity the left lentiform nucleus and adjacent merrill radiata. Residual thymic tissue anterior mediastinum. No pneumothorax. Centimeter hypodense focus of the left thyroid. No acute fracture. IMPRESSION: 1. Unremarkable CTA of the head and neck. 2. The acute infarct of the left lentiform nucleus and adjacent white matter is better characterized on the brain MRI study of same day. ACT 112: Negative or not required by law. The above report was generated using voice recognition software. It may contain grammatical, syntax or spelling errors. Electronically signed by: Rogerio Louise M.D. 05/04/2021 7:05 PM Dictated: 05/04/211858Transcribed: 05/04/211858 XR chest 1V portable HISTORY: 20 years-old Male Stroke Like Symptoms acute strokelike symptoms COMPARISON: Chest radiographs 11/19/2005 TECHNIQUE: Portable AP view of the chest FINDINGS: Cardiomediastinal and hilar silhouettes are within normal limits. No pneumothorax, pleural effusion, airspace consolidation or overt pulmonary edema. Mild mid thoracic dextroscoliosis may be positional. No acute fracture. IMPRESSION: No acute process. ACT 112: Negative or not required by law. The above report was generated using voice recognition software. It may contain grammatical, syntax or spelling errors. Electronically signed by: Rogerio Louise M.D. 05/04/2021 4:07 PM Dictated: 05/04/211605Transcribed: 05/04/211605 Hospital Course (1) Acute cerebrovascular accident (CVA): (2) Right sided weakness: (3) Anemia: This is an otherwise healthy 20-year-old male attends college at [employer] and is a wrestler and presents to ED secondary to abnormal MRI findings in setting of right-sided weakness, difficulty with word finding and forgetfulness x3 days. MRI:. 2.9 x 2.5 x 1.2 cm focus of signal abnormality within the posterior aspect of the left lentiform nucleus extending into the centrum semiovale. This is consistent with an acute infarct. No significant mass effect. Findings discussed with Dr. De La Torre at time of dictation. 2. Additional smaller foci of signal abnormality within the white matter of the superior left frontal lobe. This finding is age indeterminate although probably not acute. This may contain trace blood products given T1 hyperintensity. No mass effect. CTA head and neck unremarkable. No risk factors for CVA. Discussed case with neurology Dr. Moore and Dr. Powers Continue ASA 81mg daily and plavix 75mg daily Echocardiogram showed revealing mitral valve vegetation. Differential diagnosis includes thrombus and or tumor (i.e. fibroblastoma). hypercoagulable work up pending Speech on board- passed dysphagia screen Will need to get a KATARINA Cardiology recommended to transfer to a tertiary care to [facility] by cardiothoracic surgery Case discussed with [facility] hospitalist Dr. Darby and cardiology Dr. Loco Pt was accepted to transfer to [place]. Anemia hgb 13.6 anemia panel in a.m. hx of iron def, was screened for sickle cell in past and negative PCP: Eliza FULL CODE Disposition Will transfer to [place] Total Time Total Time Spent Total Time Spent (In Minutes): 45 minutesd Discharge Plan Discharge Items Patient Disposition: Transfer Acute Care Hospital Reason For Visit: ACUTE CVA Discharge Diagnosis: (1) Acute cerebrovascular accident (CVA): (2) Mitral valve vegetation: Activity: Resume your previous activity Non-emergency contact: Primary Care Provider Call non-emergency contact if: you have any medication questions Follow-up/Referrals: Calin Kay MD [Primary Care Provider] - Diet: Heart Healthy Addtl Attending Provider Instructions: Will be transfer to [facility] Accepting physician hospitalist dr. Darby Will need cardiology consult for KATARINA ( case discussed with Cardiology in [place] Dr. Loco) Will need CT surgery evaluation Blood culture collected today - pending Hypercoagulation panel - pending Continue plavix and aspirin for now Will need to follow with neurology once discharge from [facility] in 4 to 6 weeks Pending Studies at Discharge: Yes Studies:: Blood culture collected today - pending Hypercoagulation panel - pending Stand-Alone Forms: My [employer] Skilled Items Patient informed of condition?: Yes DNR: No Discharge Level of Care: Other Communicable Disease: No Discharge Prognosis: Stable Lines: Peripheral IV Urinary Catheter: No Medications and DC Order Prescriptions: No Action No Known Home Medications RF: 0 Discharge Orders: Discharge Order (Routine); Ordered 05/05/21 Ordered By: Adiel You Admission Data Admit Date/Time: 05/04/21 16:32 Attending Provider: Adiel You Admit Provider: Adiel You Primary Care Provider: Calin Kay Other Providers: Matias Jordan ; Edilberto Powers Other Interventions: Discharge Summary Assessment (RN) Last Done: 05/05/21 18:06
[2021-05-05] MEDS ORDERED: VANCOMYCIN HCL 1,000 MG in SODIUM CHLORIDE 0.9% 250 ML IV SCH (22:00)
[2021-05-06] MEDS ORDERED: cefTRIAXone SODIUM 2,000 MG in DEXTROSE 5% 50 ML IV SCH (02:00)
[2021-05-06] MEDS ORDERED: VANCOMYCIN TROUGH ONE (13:30)
[2021-05-09 20:01] LABS: Factor 5 Mutation NEGATIVE
[2021-05-10 07:00] LABS: B2 Glycoprotein IgG <2.0 U/mL (<20.0); B2 Glycoprotein IgM <2.0 U/mL (<20.0); Protein S Functional(Activity) 96 % (70-150)
[2021-05-11 09:35] LABS: Anti Cardiolipin Ab IgG <2.0 GPL-U/mL; Anti Cardiolipin Ab IgM <2.0 MPL-U/mL; Anti-Thrombin III Activity 144 % normal (80-135); PTT LA Screen 35 sec (<=40)
== END 2021-05-05 20:17 | disposition short-term general hospital (02) | DRG 66 ==
LOC: ED 15:09 → 1E 16:32